=== PATIENT | male | born 1935 | race Caucasian/White ===

== ENCOUNTER 2016-10-23 13:17 | Inpatient (IN) ==
--- NOTE | 2016-10-23 13:32 | PROVIDER DOCUMENTATION ---
HPI-General Adult - General Chief Complaint: Fall Stated Complaint: FALL/HYPOTENSION Time Seen by Provider: 10/23/16 13:23 Source: patient Allergies/Adverse Reactions: Patient Allergies Allergy/AdvReac Type Severity Reaction Status Date / Time No Known Allergies Allergy Verified 10/23/16 14:04 Home Medications: Home Medication List Medication Instructions Recorded Confirmed Last Taken Type Diphenhydramine [Benadryl] 25 mg PO QAM 10/23/16 10/23/16 10/23/16 09:00 History 25mg - History of Present Illness -Gen Adult Nature of Presenting Problems: 81 y/o WM BIB EMS for hypotension with syncopal episode while outside in a softball game. Apparently he was in the outfield and all of a sudden fell forward. Patient denies loc, states he has no other medical history and only takes vitamins. Patient can answer my questions, however, he dozes off in between questions. States this has not happened before. En route, BP was 70s/40s , tachycardic at 107 bpm, and core temp of 97F. We will recheck this here. Patient denies any chest pain, sob, headache, blurry vision, abdominal pain, nausea, vomiting or diarrhea. No evidence of bowel or bladder incontinence. Patient is not diaphoretic at this time and mucosal membranes appear dry. He is in long pants, long jonhs and 3 pairs of socks, with paper towels stuffed in them; at this time it is about 75-80 degrees outside. Review of Systems - Adult - REVIEW OF SYSTEMS - ADULT ROS:: limited per condition Constitutional: reports: see HPIcristobal. denies: chills, fever, weight loss Eyes: reports: no symptoms reported. denies: decreased vision, blurred vision, double vision, eye pain Ears, Nose, Mouth & Throat: reports: no symptoms reported. denies: ear pain, nose pain, throat pain Cardiovascular: reports: see HPI, syncope. denies: chest pain, irregular heart rate, palpitations Respiratory: reports: no symptoms reported. denies: cough, shortness of breath , wheezing Gastrointestinal: reports: no symptoms reported. denies: abdominal pain, diarrhea, nausea, vomiting Genitourinary: reports: no symptoms reported. denies: dysuria, discharge, frequency, incontinence Musculoskeletal: reports: no symptoms reported. denies: bone pain, back pain, muscle aches Integumentary: reports: no symptoms reported. denies: rash Neurological: reports: no symptoms reported. denies: ataxia, dizziness/vertigo , headache/migraines Psychiatric: reports: no symptoms reported Endocrine: reports: no symptoms reported Hematologic/Lymphatic: reports: no symptoms reported Allergic/Immunologic: reports: no symptoms reported All Other Systems: Reviewed and Negative Past History - Adult - PAST MEDICAL HISTORY-ADULT Review of Records: reports: Old Records Reviewed, Nursing Assessment Review, Medications Reviewed, Social history reviewed & non-contributory. Major Childhood Illnesses: reports: denies history Cardiovascular: reports: denies history Respiratory: reports: denies history Gastrointestinal: reports: denies history Genitourinary: reports: denies history Musculoskeletal: reports: denies history Neurological: reports: denies history Endocrine/Immune: reports: denies history Other Conditions: reports: denies history - IMMUNIZATION STATUS Childhood Immunizations: See Nurse Assessment Flu Vaccine: See Nurse Assessment - FAMILY HISTORY Family History: reviewed, not pertinent Physical Exam-General - PHYSICAL EXAM-ADULT Initial Vital Signs Reviewed: Yes - CONSTITUTIONAL General Appearance: alert, thin - EYES Eyes: PERRL/EOMI, pink conjunctivae - HEAD, EARS, NOSE, MOUTH & THROAT HENMT: normocephalic/atraumatic, normal ENT inspection, other (dry mucous membranes) - NECK Neck: non-tender, full range of motion, supple, normal inspection - RESPIRATORY Respiratory: chest non-tender, lungs clear, normal breath sounds, no pleuratic chest pain, no respiratory distress, no accessory muscle use. negative: respiratory distress, decreased breath sounds, accessory muscle use, crackles, rales, rhonchi, wheezing - CARDIOVASCULAR Cardiovascular: normal peripheral pulses, regular rate, rhythm, no edema, no gallop, tachycardia. negative: bradycardia - GASTROINTESTINAL (ABDOMEN) Abdominal Exam: normal bowel sounds, non tender, soft, no organomegaly, no pulsatile mass. negative: abdominal bruit, abnormal bowel sounds, distended, guarding, rigid, rebound, tenderness - LYMPHATIC Lymphatic: no adenopathy - MUSCULOSKELETAL Extremity: normal range of motion, non-tender, normal inspection Peripheral Pulses: radial (R): 2+, radial (L): 2+, dorsalis-pedis (R): 2+, dorsalis-pedis (L): 2+ - SKIN Integumentary: normal color, normal turgor, warm/dry - NEUROLOGIC Neurologic: grossly normal, no motor/sensory deficits - PSYCHIATRIC Psych/Mental Status: normal thought content, normal thought process Progress - PLAN OF CARE/RESULTS Progress/Plan/Lab Results: Orders Category Date Time Status Cardiac Monitoring DIRECTED Care 10/23/16 13:24 Active Finger Stick Blood Sugar (ED) DIRECTED Care 10/23/16 13:24 Active Oxygen Therapy- ED Nursing DIRECTED Care 10/23/16 13:24 Active Saline Loc NOW Care 10/23/16 13:24 Active CHEST-PORTABLE [RAD] Stat Exams 10/23/16 13:24 Ordered HEAD W/O CONTRAST [CT] Stat Exams 10/23/16 13:24 Ordered ABG [RESP] Routine Lab 10/23/16 13:24 Ordered ALCOHOL BLOOD Stat Lab 10/23/16 13:24 Uncollected CBC WITH ELECTRONIC DIFF [HEME] Stat Lab 10/23/16 13:24 Uncollected CK PROFILE [SP CHEM] Stat Lab 10/23/16 13:24 Uncollected COMPREHENSIVE METABOLIC PANEL [CHEM] Stat Lab 10/23/16 13:24 Uncollected LACTATE, PLASMA [CHEM] Stat Lab 10/23/16 13:24 Uncollected PROTIME WITH INR [COAG] Stat Lab 10/23/16 13:24 Uncollected PTT [COAG] Stat Lab 10/23/16 13:24 Uncollected TROPONIN T Stat Lab 10/23/16 13:24 Uncollected URINALYSIS W/POSS RFLX CULT [URINALYSIS] Stat Lab 10/23/16 13:24 Uncollected URINE DRUG SCREEN Stat Lab 10/23/16 13:24 Uncollected Pulse Oximetry Stat Oth 10/23/16 13:24 Active EKG [EKG] Stat Ther 10/23/16 13:24 Ordered Patient had 2 IVs started MULTI SPINDLE OPERATOR, with 500 cc NS in. We initiated a second bolus and removed clothing. After initial interview, Dr. Pierce brought to bedside. Creatinine clearance 18.6 mL/min. Will adjust dosing of Zosyn Result Diagrams: 10/25/16 04:40 10/25/16 04:40 - REASSESSMENT Reassessment #1 Time Reassessed: 14:26 (patient more alert now. No longer falling asleep with interview. Can answer all my questions thuroughtly. States he has been having dysuria, and hematuria for the past 5 days. Also reports cough x 2 weeks.) Status: improving - XRAY 1 XRAY: Bilateral XRAY Study: Chest Impression: Abnormal (cardiomegaly and pulmonary vascular congestion) - CT/MRI 1 CT Study: Head Impression: Normal (negative per Dr. Patel) - CONSULTS/PCP/HOSPITALIST Notification #1 *Consult/PCP/Hospitalist*: HospitalistJeffry GOVERNMENT AUDITOR with Dr. Kern Time Discussed: 15:58 Reason/Comments: sepsis, UTI, AMS, hypotension, SAM Consult Disposition: Admit Departure - Departure Time of Disposition Decision: 15:59 DIAGNOSIS: SAM (acute kidney injury) Sepsis Qualifiers: Sepsis type: sepsis due to unspecified organism Qualified Code(s): A41.9 - Sepsis, unspecified organism UTI (urinary tract infection) Qualifiers: Urinary tract infection type: acute cystitis Hematuria presence: with hematuria Qualified Code(s): N30.01 - Acute cystitis with hematuria Disposition: ADMITTED INPATIENT 09 Certified Medical Emergency: Emergent Condition: Stable Attestation - Physician/ SUZY Attestation Patient care was provided by Advanced Practice Provider:: Yes Advanced Practice Provider:: Love Etienne Advanced Practice Provider documentation review:: The Mid-level provider documentation, treatment plan and medical decision making was reviewed by the physician who agrees with all treatment and medical decision making by the MLP. The physician spent face to face time with patient:: Yes Advanced Practice Provider documentation review:: The physician spent face to face time with this patient and agrees with all MLP documentation, treatment, and medical decision making by the MLP. See provider notes for further information.
[2016-10-23] MEDS ORDERED: NS 1,000 ML IV ONE ×3 (13:40→14:25)
[2016-10-23 13:42] LABS: ALLEN TEST YES; BE -8.4 mmoll (-3.0-3.0); BLOOD TYPE ARTERIAL; DRAW SITE R RADIAL; METHB 2.5 % (0.0-1.5); O2(CT) 14.6 mL/dL (15.0-23.0); PCO2(98.6) 28 mmHg (35-45); PO2(98.6) 74 mmHg (60-100); SAMPLE BLOOD; SAO2 97.9 % (95.0-100.0); THB 11.1 g/dL (11.5-17.4); pH(98.6) 7.36 (7.35-7.45)
[2016-10-23 13:57] LABS: INR 1.2; PROTIME 12.7 Seconds (9.2-11.7); PTT 37.4 Seconds (22.0-36.0)
[2016-10-23 14:05] LABS: BASO% 0.1 % (0.0-0.8); EOS# 0.01 X1000 (0.0-0.7); HEMATOCRIT 39.2 % (42.0-52.0); HEMOGLOBIN 13.3 g/dL (14.0-18.0); IMM GRAN# 1.11 X1000 (0.0-0.04); IMM GRAN% 1.8 % (0.0-0.5); LYMPH# 0.42 X1000 (1.2-3.4); LYMPH% 0.7 % (20.5-51.1); MANUAL DIFF NEEDED? YES; MCH 32.1 PG (27-31); MCHC 33.9 g/dL (33-37); MCV 94.7 FL (81-99); MONO# 0.98 X1000 (0.11-0.59); MONO% 1.6 % (1.7-9.3); MPV 13.8 FL (7.4-10.4); NEUT% 95.8 % (42.2-75.2); PLT 190 X1000 (130-400); RBC 4.14 XMIL (4.7-6.1)
[2016-10-23 14:10] LABS: BANDS 8 % (0-1); MONO 1 % (1-9)
[2016-10-23 14:12] LABS: ALBUMIN 2.5 g/dL (3.5-5.0); CALCIUM 9.1 mg/dL (8.8-10.2); POTASSIUM 3.3 mmol/L (3.5-5.1); TOTAL BILIRUBIN 0.89 mg/dL (0.20-1.00); TOTAL PROTEIN 5.9 g/dL (6.3-8.3)
[2016-10-23] MEDS ORDERED: ROCEPHIN 1 GM/NS 1 GM/50 ML IVPB IV ONE (14:14)
--- NOTE | 2016-10-23 14:15 | Diag Imaging Result Document ---
PROCEDURE NAME: HEAD W/O CONTRAST - 10/23/[address]: A CT dose reduction protocol was used. COMPARISON: None. FINDINGS: The ventricles and sulci are normal in size and contour. There is no mass, hemorrhage, or evidence of acute ischemia. The bony calvaria is intact. The visualized paranasal sinuses and mastoid air cells are clear. IMPRESSION: Negative head CT. MTDD
[2016-10-23] MEDS ORDERED: NS 4,000 ML ONE (14:16)
[2016-10-23] MEDS ORDERED: ZOSYN 2.25 GM/NS 2.25 GM/50 ML IVPB IV ONE (14:30)
--- NOTE | 2016-10-23 15:03 | Diag Imaging Result Document ---
PROCEDURE NAME: CHEST-PORTABLE - 10/23/2016 PORTABLE CHEST X-RAY: COMPARISON: None. FINDINGS: There is cardiomegaly and pulmonary vascular congestion. No obvious edema. No infiltrates. IMPRESSION: Cardiomegaly and pulmonary vascular congestion.
[2016-10-23 15:14] LABS: URINE SOURCE CLEAN CATCH
[2016-10-23 15:28] LABS: UR AMPHETAMINES QUAL NONE DETECTED (NONE DETECT); UR BARBITUATES QUAL NONE DETECTED (NONE DETECT); UR BENZODIAZEPIN QUAL NONE DETECTED (NONE DETECT); UR CANNABINOIDS QUAL NONE DETECTED (NONE DETECT); UR COCAINE QUAL NONE DETECTED (NONE DETECT); UR METHADONE QUAL NONE DETECTED (NONE DETECT); UR OPIATES QUAL NONE DETECTED (NONE DETECT); UR OXYCODONE QUAL NONE DETECTED (NONE DETECT); UR PCP QUAL NONE DETECTED (NONE DETECT)
[2016-10-23 15:31] LABS: BILIRUBIN URINE NEGATIVE (NEGATIVE); BLOOD URINE MODERATE (NEGATIVE); COLOR ORANGE; GLUCOSE URINE NEGATIVE (NEGATIVE); LEUKOCYTES URINE LARGE (NEGATIVE); NITRITE URINE NEGATIVE (NEGATIVE); PH URINE 5.5; PROTEIN URINE 200 mg/dL (NEGATIVE); SP GRAVITY URINE 1.017; TURBIDITY URINE TURBID (CLEAR); UROBILINOGEN URINE NORMAL (NORMAL)
[2016-10-23 15:34] LABS: UR EPITHELIAL CELLS >10 /HPF (<10); URINE BACTERIA 4+ /HPF; URINE CULTURE NEEDED? YES; URINE MICRO REVIEW NEEDED? YES; URINE RBC 20-40 /HPF (<10); URINE WBC TNTC /HPF (<10)
[2016-10-23 15:37] LABS: URINE CASTS NONE SEEN
[2016-10-23 16:53] LABS: RETIC% 0.6 % (0.8-2.1); RETIC-HE 35.2 PG (28.2-36.6)
[2016-10-23 17:08] LABS: HEMOGLOBIN A1C 4.2 % (4.8-6.0)
--- NOTE | 2016-10-23 17:18 | HISTORY AND PHYSICAL ---
PRIMARY CARE PHYSICIAN: None. CHIEF COMPLAINT: Weakness. HISTORY OF PRESENT ILLNESS: Mr. Ordaz is an 81-year-old male with no apparent medical history who comes to the ER today after a possible syncopal vs pre-syncopal event. 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 He is unclear if he passed out, but he does remember feeling dizzy just prior to the event. 911 was called and the patient came to the ER. He reports over the past 2-3 weeks he has had occasional fever and chills. He has had dysuria and lability in blood pressure. He denies any chest pain. He denies any shortness of breath but does report a cough with clear sputum production. He denies any abdominal pain, does report dysuria. Denies any hematuria. He reports occasional diarrhea but denies any hematochezia. He came to the ER today and was noted to be in severe sepsis with a white count of 60. He had a lactic acidosis with a lactate of 7 with liver dysfunction, renal dysfunction, and very large UTI. Sepsis protocol was initiated in the ER. He has received adequate fluid bolus. We are going to scan his chest, abdomen and pelvis, and then send him to the ICU. He was hypotensive on arrival but with fluid resuscitation his blood pressure has normalized. PAST MEDICAL HISTORY: None. PAST SURGICAL HISTORY: None. MEDICATIONS: None. SOCIAL HISTORY: No history of tobacco, alcohol or drug use. He has family at the bedside. 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 REVIEW OF SYSTEMS: Fourteen-point review of systems obtained and found to be negative with the exception of the HPI. FAMILY HISTORY: Noncontributory. PHYSICAL EXAMINATION: VITAL SIGNS: Blood pressure is 103/70, heart rate 98, respiratory rate 22, O2 saturation 99% on 2 L nasal cannula. Temperature is 97.5 degrees. GENERAL: This is an elderly male, lying in hospital bed, in no acute distress. NEUROLOGIC: The patient is awake, alert, oriented. He follows commands without focal deficits. HEENT: Head is atraumatic, normocephalic. His pupils are equal, round, reactive to light. Oral mucosa is dry. NECK: Trachea is midline. Neck is supple. No JVD. CHEST: Clear to auscultation bilaterally. CV: Regular rate and rhythm. S1-S2 is noted. There is a 1/6 systolic ejection murmur. GI: Soft, nondistended, nontender. Bowel sounds positive. EXTREMITIES: 1+ edema bilaterally with palpable pulses. DIAGNOSTIC DATA: Chest x-ray shows cardiomegaly with increased pulmonary vascular congestion. Head CT is negative for acute process. WBC 60.29, hemoglobin 13.3, hematocrit 39.2, platelet count 190,000, neutrophils 95.8, bands 8, segmented neutrophils 91, INR 1.2, PT 12.7. ABG on 2 L; pH 7.36, CO2 28, O2 74, bicarbonate 18, lactic acid is 7. Sodium is 137, potassium 3.3, chloride 94, CO2 14, anion gap 9, BUN 60, creatinine 3.7, glucose 62, calcium 9.1, bilirubin 0.89, AST 62, ALT 45, alkaline phosphatase 37.2. CK 50, troponin 0.123, proBNP 52.49. Protein 5.9, albumin 2.5, lactate 5.7. TSH 3.6, free T4 1.57. UA is positive for very large UTI. Tox screen is negative. Alcohol level is 0. ASSESSMENT/PLAN: 1. Severe sepsis: Evidenced by profoundly elevated white count, lactic acidosis , source of urinary tract infection, hypotension, and end-organ damage. 30 mL/kg boluses been given in the ER. His blood pressure has normalized and he does not need vasopressors at this time. However, we are going to send him to the ICU, but we will check an abdomen, pelvis and chest CT now to rule out any intra-abdominal or renal abscesses. Blood cultures have been obtained. We will continue to monitor his hemodynamics closely. 2. Urinary tract infection: Urine cultures are pending and we will continue broad-spectrum antibiotics. 3. Acute kidney injury: Likely prerenal, we are checking a CT of the abdomen and pelvis to rule out any obstruction, we will check comprehensive urine studies and a FENa. 4. Elevated liver function tests: Again, likely secondary to sepsis, but we are checking a CT of the abdomen and pelvis now. We will also check acetaminophen and salicylate levels. 5. Elevated troponin and proBNP: Patient denies any chest pain, we are going to order an EKG, chest x-ray shows cardiomegaly and pulmonary vascular congestion. While the patient certainly could have congestive heart failure, he could also has sepsis-induced cardiomyopathy. We are going to check an echocardiogram and continue to trend his enzymes. We will hold off any diuresis at this time given his severe sepsis. 6. We will add heparin for deep venous thrombosis prophylaxis given his renal failure. 7. Further recommendations to follow. Dictated by GATO Bob for Prashant Oneal MD cc: GATO Bob MD MTDD
[2016-10-23] MEDS: POTASSIUM CHLORIDE 20 MEQ/SWI 20 MEQ/100 ML IVPB IV SCH ×2 (17:27→20:10)
[2016-10-23 17:29] LABS: PROTEIN CREAT RATIO 0.5; UR CREAT RANDOM 163.8 mg/dL (14-26); UR PROT RANDOM 88.7 mg/dL
[2016-10-23] MEDS: NS 1,000 ML IV SCH (17:33)
[2016-10-23 17:55] LABS: ACETAMINOPHEN < 1.2 ug/mL (10-30); IRON SATURATION 12 %; TIBC 138 ug/dL; TOTAL IRON 16 ug/dL (53-167); UNBOUND IRON 122 ug/dL (112-346)
[2016-10-23 18:06] LABS: FREE T4 1.27 ng/dL (0.93-1.70)
[2016-10-23] MEDS: HEPARIN SUBQ SCH (21:35)
[2016-10-23] MEDS: ZOSYN 2.25 GM/NS 2.25 GM/50 ML IVPB IV SCH (21:44)
[2016-10-24] MEDS ORDERED: PNEUMOVAX 23 IM ONE (00:27)
[2016-10-24] MEDS: ZOSYN 2.25 GM/NS 2.25 GM/50 ML IVPB IV SCH ×4 (03:09→20:22)
[2016-10-24] MEDS ORDERED: VANCOMYCIN IV PER PHARMACY MISC SCH (04:45)
[2016-10-24] MEDS ORDERED: VANCOMYCIN 1,750 MG in NS 500 ML IV ONE (05:00)
[2016-10-24] MEDS: NS 1,000 ML IV SCH ×2 (05:05→20:22)
[2016-10-24 06:05] LABS: HEMATOCRIT 31.9 % (42.0-52.0); HEMOGLOBIN 10.8 g/dL (14.0-18.0); MCH 32.2 PG (27-31); MCHC 33.9 g/dL (33-37); MCV 95.2 FL (81-99); MPV 13.7 FL (7.4-10.4); RBC 3.35 XMIL (4.7-6.1)
[2016-10-24 06:31] LABS: ALBUMIN 2.1 g/dL (3.5-5.0); CALCIUM 7.6 mg/dL (8.8-10.2); POTASSIUM 3.6 mmol/L (3.5-5.1); TOTAL BILIRUBIN 0.53 mg/dL (0.20-1.00); TOTAL PROTEIN 4.6 g/dL (6.3-8.3)
[2016-10-24] MEDS: HEPARIN SUBQ SCH ×2 (08:29→20:22)
--- NOTE | 2016-10-24 14:51 | ECHO REPORT ---
ORDER DATE: 10/23/2016 INDICATION: Presyncope. FINDINGS: 1. Right atrium appears mildly enlarged at 4.7 cm. 2. Mild tricuspid regurgitation. RV systolic pressure of 30. 3. Normal RV size and systolic function. 4. No significant pulmonic insufficiency. 5. Normal left atrial size at 3.8 cm. 6. No mitral valve prolapse. Mild mitral regurgitation. 7. Normal LV size, end-diastolic dimension of 4.2. Borderline left ventricular hypertrophy with a posterior and interventricular septal thickness 1.0 and 1.2 cm respectively. Normal LV systolic function. Estimated EF is 60% with normal wall motion. 8. Aortic valve appears to open reasonably well. The valve is sclerotic but does not appear to be significantly stenotic. There is mild aortic insufficiency. 9. Aorta appears normal in visualized segments. 10. No pericardial effusion seen. cc: MD Adan Renee CRNP
--- NOTE | 2016-10-24 16:48 | PROGRESS NOTE ---
DATE: 10/24/2016 SUBJECTIVE: This patient states that he is feeling better. He is tolerating p.o. He is walking by himself and he is having bowel movement. No complaints. OBJECTIVE: Vital Signs: Temperature 98.3 degrees, pulse 74, respiratory rate 18, blood pressure 123/63, O2 saturation 96% on room air. HEENT: Head normocephalic. No trauma. Pupils equal, round, and reactive to light and accommodation. Neck: Supple. No jugular venous distention. No masses. Central trachea. Chest: Clear to auscultation. No wheezing. No rales. Cardiovascular: Regular rate and rhythm. Systolic murmur. Abdomen: Soft, nontender, nondistended. No hepatosplenomegaly. Extremities: No edema. No clubbing. No cyanosis. Neurological Examination: The patient is alert, oriented x3. No focal neurological deficits. LABORATORY: WBC 28.4, hemoglobin 10.8, hematocrit 31.9, platelet 138,000. Sodium 137, potassium 3.6, chloride 103, bicarbonate 19. BUN 61, creatinine 2.5, calcium 7.6. Albumin 2.1. ASSESSMENT AND PLAN: 1. Sepsis. This condition is getting better. He is still having leukocytosis. Blood pressure is controlled. Likely the source of infection is the urinary tract. We did a CT scan that showed the possibility of a prostate mass. Urology Department has been consulted. 2. Urinary tract infection. This patient has a urine culture that showed gram-negative rods. This patient is on broad-spectrum antibiotics. Continue with the same treatment. 3. Possible bacteremia. He positive blood culture that shows gram-negative rods and gram- positive rods. This patient is on broad-spectrum antibiotics. We will continue with the same management for now. 4. Elevated liver function tests likely secondary to sepsis. The numbers are getting better. Continue to monitor. 5. Elevated proBNP. The patient denies chest pain. Will monitor. 6. Possible mass at the level of the prostate. Urology Department has been consulted. Continue to monitor. 7. Deep venous thrombosis prophylaxis. This patient is on heparin subcutaneously. CRITICAL CARE TIME: Was 35 minutes. cc: Prashant Oneal MD
[2016-10-25] MEDS: ZOSYN 2.25 GM/NS 2.25 GM/50 ML IVPB IV SCH ×4 (04:10→22:43)
[2016-10-25 06:17] LABS: ALBUMIN 1.7 g/dL (3.5-5.0); CALCIUM 7.6 mg/dL (8.8-10.2); POTASSIUM 3.6 mmol/L (3.5-5.1); TOTAL BILIRUBIN 0.36 mg/dL (0.20-1.00); TOTAL PROTEIN 4.1 g/dL (6.3-8.3)
[2016-10-25 06:25] LABS: BASO% 0.1 % (0.0-0.8); EOS% 0.5 % (0.0-10.0); HEMATOCRIT 28.4 % (42.0-52.0); HEMOGLOBIN 9.4 g/dL (14.0-18.0); IMM GRAN# 0.11 X1000 (0.0-0.04); IMM GRAN% 0.6 % (0.0-0.5); LYMPH# 0.92 X1000 (1.2-3.4); LYMPH% 4.9 % (20.5-51.1); MANUAL DIFF NEEDED? YES; MCH 31.4 PG (27-31); MCHC 33.1 g/dL (33-37); MONO# 1.24 X1000 (0.11-0.59); MONO% 6.6 % (1.7-9.3); NEUT% 87.3 % (42.2-75.2); PLT 142 X1000 (130-400); RBC 2.99 XMIL (4.7-6.1)
--- NOTE | 2016-10-25 07:10 | EKG Report ---
Test Performed on : 10/23/2016 1:22:40 PM Test Reason : AMS Blood Pressure : / mmHG Vent. Rate : 099 BPM Atrial Rate : 099 BPM P-R Int : 124 ms QRS Dur : 096 ms QT Int : 398 ms P-R-T Axes : 052 -06 049 degrees QTc Int : 510 ms Sinus rhythm. with sinus arrhythmia. with occasional premature ventricular complexes. Possible Left atrial enlargement Prolonged QT Abnormal ECG When compared with ECG of 23-OCT-2016 13:22, (Unconfirmed) premature ventricular complexes. are now present ST no longer elevated in Lateral leads Unconfirmed Result
[2016-10-25 07:13] LABS: BANDS 6 % (0-1); LYMPHS 4 % (21-51)
--- NOTE | 2016-10-25 07:32 | Diag Imaging Result Document ---
PROCEDURE NAME: THORAX/ABDOMEN/PELVIS W/O CONT - 10/23/2016 CT OF THE CHEST: A CT dose reduction protocol was used. COMPARISON: None. FINDINGS: There is mild cardiomegaly. There are some increased interstitial markings suggesting mild pulmonary edema in the lung bases. There is some dependent atelectasis. No pneumothorax or pleural effusion. No adenopathy. Bony structures are intact. IMPRESSION: Cardiomegaly and probable mild interstitial pulmonary edema. CT ABDOMEN AND PELVIS: A CT dose reduction protocol was used. COMPARISON: None. FINDINGS: There is a large heterogeneous density prostate gland mass extending into the anterior wall of the rectum. This measures about 9 x 8 cm. There are some borderline enlarged retroperitoneal lymph nodes. Urinary bladder is collapsed by a Ellison catheter but the urinary bladder wall is thickened, probably due to chronic urinary bladder hypertension. There is severe diverticulosis throughout the entire colon. No evidence of bowel inflammation. Normal appendix. Solid organs are grossly normal. Advanced degenerative changes of the spine and pelvis. No suspicious bony lesions. IMPRESSION: 1. 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 2. Severe diverticulosis of the colon. [facility]
[2016-10-25] MEDS: HEPARIN SUBQ SCH ×2 (08:20→22:44)
--- NOTE | 2016-10-25 11:10 | EKG Report ---
Test Performed on : 10/25/2016 09:23:20 AM Test Reason : AMS Blood Pressure : / mmHG Vent. Rate : 087 BPM Atrial Rate : 087 BPM P-R Int : 146 ms QRS Dur : 094 ms QT Int : 382 ms P-R-T Axes : 057 001 042 degrees QTc Int : 459 ms Normal sinus rhythm. Possible Left atrial enlargement Anterior infarct , age undetermined Abnormal ECG When compared with ECG of 23-OCT-2016 13:22, (Unconfirmed) premature ventricular complexes. are no longer present Anterior infarct is now present QT has shortened Confirmed by Juwan VELARDE, David Hatch ([id number]) on 10/25/2016 8:06:05 PM
[2016-10-25 11:27] LABS: HEPATITIS PROFILE ACUTE SEE COMMENTS
--- NOTE | 2016-10-25 13:36 | PROGRESS NOTE ---
DATE: 10/25/2016 SUBJECTIVE: This patient states that he is feeling better. He is tolerating p.o. He is walking by himself. He is having bowel movements. No fever or chills. OBJECTIVE: Vital Signs: Temperature 97.5 degrees, pulse 77, respiratory rate 16, blood pressure 137/71, oxygen saturation 100% on room air. HEENT: Head normocephalic. No trauma. PERRLA. Neck: Supple. No JVD. No masses. Central trachea. Chest: Clear to auscultation. No wheezing. No rales. Cardiovascular: RRR. No murmurs. Abdomen: Soft, nontender, nondistended. No hepatosplenomegaly. Extremities: No edema. No clubbing. No cyanosis. Neurological: The patient is alert and oriented x3. No focal neurological deficits. LABORATORY: WBC 18.7, hemoglobin 9.4, hematocrit 28.4, platelets 142,000. Sodium 140, potassium 3.6, chloride 108, bicarbonate 20, BUN 72, creatinine 1.7, calcium 7.6. ASSESSMENT AND PLAN: 1. Sepsis. This condition is getting better. He is still having leukocytosis. Blood pressure is controlled. This patient has a positive urine culture that showed E. coli that is sensitive to Zosyn. Also this patient has bacteremia secondary to gram-negative rods. We will continue with the same management for now. 2. Urinary tract infection. Patient has had a urine culture, like I mentioned before, positive for E. coli. Continue with the same management. This patient is getting better. 3. Bacteremia. Blood culture showed gram-negative rods as well. The patient is on broad- spectrum antibiotics. Continue with the same management for now. 4. Elevated liver function tests, likely secondary to sepsis. The numbers are getting better. 5. Possible mass at the level of the prostate. Urology department evaluated this patient already, pending recommendations. Continue to monitor. 6. Deep vein thrombosis prophylaxis. Continue with heparin. 7. Overall this patient is doing much better. I will transfer this patient from the CIC unit to the medical floor. cc: Prashant Oneal MD
[2016-10-25] MEDS ORDERED: VANCOMYCIN 1,500 MG in NS 250 ML IV SCH (17:00)
[2016-10-25] MEDS: ZOFRAN IV PRN (22:46)
[2016-10-26] MEDS: NS 1,000 ML IV SCH ×2 (03:27)
[2016-10-26] MEDS: ZOSYN 2.25 GM/NS 2.25 GM/50 ML IVPB IV SCH ×2 (03:32→08:55)
[2016-10-26] MEDS: ZOFRAN IV PRN ×2 (05:23→13:01)
[2016-10-26 07:57] LABS: ALBUMIN 1.6 g/dL (3.5-5.0); CALCIUM 7.6 mg/dL (8.8-10.2); POTASSIUM 4.7 mmol/L (3.5-5.1); TOTAL BILIRUBIN 0.34 mg/dL (0.20-1.00)
--- NOTE | 2016-10-26 08:33 | CONSULTATION ---
DATE OF CONSULTATION: 10/24/2016 CONSULTING PHYSICIAN: Dr. Prashant Oneal. REASON FOR CONSULTATION: Prostate mass, urosepsis. 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 He reports having seen Dr. Wakefield, his family doctor, for quite some time and has not had a primary care doctor since Dr. Wakefield had retired. He has tried [facility] [place] in the past for an enlarged prostate and reports his PSA was in the 4 range a number of years ago. He did report baseline nocturia x3, hesitancy, postvoid dribbling, and sensation of incomplete emptying. He reported 1 episode of gross hematuria not too long prior to presentation. He denies history of urinary tract infections or family history of prostate cancer. He was admitted to the hospital and resuscitated for sepsis protocol. He currently reports he is feeling better. He has Ellison catheter in place. PAST MEDICAL HISTORY: BPH. PAST SURGICAL HISTORY: None. HOME MEDICATIONS: [id number] supplements. ALLERGIES: No known drug allergies. SOCIAL HISTORY: He denies tobacco, alcohol, or drug use. FAMILY HISTORY: Denies malignancies. REVIEW OF SYSTEMS: Reviewed and 12 systems negative with the exception to the HPI. PHYSICAL EXAMINATION: Temperature 97.7, Pulse 79, BP 132/76.General: No acute distress. Pleasant male. HEENT: Normocephalic, atraumatic. Cardiovascular: Regular rhythm. Pulmonary: Bilateral breath sounds. Abdomen: Scaphoid, nontender to palpation. : Uncircumcised phallus, meatus is normal, Ellison catheter in place. Testes are descended bilaterally without masses. Digital rectal examination: A very large gland, over 70 ccm, somewhat nodular and firm. I did not appreciate a mass extending into his rectum as a CT scan suggested. Lymphatics: No groin lymphadenopathy. Dermatologic: No obvious skin rashes. Neurologic: Alert and oriented x3. Psychiatric: Appropriate mood and affect. PERTINENT LABORATORY DATA: Creatinine 1.7. White cell count of 19,000. His urinalysis on 10/23/2016 was suspect for infection and current preliminary culture results showing gram-negative rods in his urine. PERTINENT IMAGES: CT chest, abdomen, and pelvis on 10/23/2016 with a report of a large prostate with mass effect reportedly involving the anterior wall of the rectum. ASSESSMENT: An 81-year-old male with a very large prostate, longstanding history of BPH, who came in with what appears to be urosepsis. I have discussed with the patient that he has an extremely large prostate gland. We discussed the utility of PSA testing and agreed to defer it given the fact that he has a UTI and has a Ellison catheter in which would likely elevate the PSA. I also explained to the patient that I could not appreciate direct involvement of the prostate into the wall of the rectum, and it is likely just to the mass effect of the prostate pushing onto the rectum. We discussed that he would benefit for now from Flomax 0.4 mg twice a day and side effects were explained. We discussed that he may benefit in the future from finasteride versus consideration of surgical interventions if this becomes a pattern of infections or he continues to have significant symptoms. PLAN: 1. Defer PSA for now. 2. Flomax 0.4 mg b.i.d. 3. Will discuss with the primary team possible GI evaluation as, again, on my exam he does not appear to have prostate involving the rectum wall, although on CT scan, it does look suspicious. Thank you for the consultation. cc: Harris Chamorro MD
[2016-10-26 08:37] LABS: HEMATOCRIT 19.7 % (42.0-52.0); HEMOGLOBIN 6.3 g/dL (14.0-18.0); MCH 31.7 PG (27-31); MPV 13.8 FL (7.4-10.4); RBC 1.99 XMIL (4.7-6.1)
[2016-10-26] MEDS: HEPARIN SUBQ SCH (09:00)
[2016-10-26] MEDS: FLOMAX PO SCH ×2 (13:01→22:32)
[2016-10-26] MEDS ORDERED: DULCOLAX PO ONE ×2 (13:30→21:00)
--- NOTE | 2016-10-26 13:59 | PROGRESS NOTE ---
DATE: 10/26/2016 SUBJECTIVE: This patient states that he is feeling better. He is tolerating p.o. He is walking by himself. He is having bowel movements. No fever. No chills. As per the nurse, this patient has been having some episodes of hypotension, asymptomatic. I put this patient again on telemetry and I will continue with the IV fluids. Occult blood in the stool is negative but urology recommended an evaluation by gastroenterology department to rule out any rectal issues/malignancy. OBJECTIVE: Vital Signs: Temperature 98.1 degrees, pulse 95, respiratory rate 24, blood pressure 111/68, oxygen saturation 100% on room air. HEENT: Head normocephalic. No trauma. PERRLA. Neck: Supple. No JVD. No masses. Central trachea. Chest: Clear to auscultation. No wheezing. No rales. Cardiovascular: RRR. No murmurs. Abdomen: Soft, nontender, nondistended. No hepatosplenomegaly. Extremities: No edema. No clubbing. No cyanosis. Neurological: The patient is alert and oriented x3. No focal neurological deficits. LABORATORY: WBC 20.1, hemoglobin 6.3, hematocrit 19.7, platelets 164,000. Sodium 143, potassium 4.7, chloride 112, bicarbonate 20, BUN 95, creatinine 1.4, glucose 123, calcium 7.6. ASSESSMENT AND PLAN: 1. Sepsis. This condition is getting better. He is still having leukocytosis. Blood pressure is controlled. We have a positive urine culture that showed E. coli that is sensitive to Zosyn. Also this patient has bacteremia secondary to gram-negative rods. We will continue with the same management for now. Infectious disease department has been consulted. 2. Anemia. I will transfuse this patient with 2 units of PRBCs and we will continue monitoring the hemoglobin and hematocrit. We have an occult blood of the stool that was negative. 3. Bacteremia. Blood culture showed gram-negative rods as well. We will continue with broad spectrum antibiotics. Infectious disease department has been consulted. 4. Elevated liver function tests. This is likely secondary to sepsis. Numbers are getting better. 5. Possible mass/hypertrophy at the level of the prostate. Urology department evaluated this patient. They have recommended to put this patient on tamsulosin twice a day. Will monitor. 6. Deep vein thrombosis prophylaxis. Continue with heparin. cc: Prashant Oneal MD
[2016-10-26] MEDS ORDERED: MIRALAX PO ONE (14:00)
[2016-10-26] MEDS: PROTONIX IV SCH (14:51)
[2016-10-26] MEDS: SODIUM CHLORIDE 0.9% INJ SCH (14:51)
--- NOTE | 2016-10-26 15:04 | CONSULTATION ---
DATE OF CONSULTATION: 10/26/2016 REFERRING PHYSICIAN: Dr. Harris Chamorro M.D. PRIMARY HOSPITALIST: Dr. Prashant Kern M.D. PRIMARY CARE PROVIDER: None. He was previously followed by Dr. Bustillo who is now retired. He has not seen a doctor since his snf. REASON FOR CONSULTATION: 1. Rectal mass. 2. Anemia. 3. Nausea. HISTORY OF PRESENT ILLNESS: The patient is an 81-year-old, white male who has long-standing history of BPH. 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 He was found to have urosepsis. He was subsequently treated for urosepsis but was noted to have a large prostate mass versus rectal mass on abdominal pelvic CT performed on 10/23/2016. The patient reports constipation for 2-3 weeks, 1 episode of rectal bleeding with blood mixed with stool and nausea. He was noted to have a hemoglobin of 6.3 with hematocrit of 19.7 today. We are asked to participate in his care. PAST MEDICAL HISTORY: 1. BPH. 2. Urosepsis. 3. Rectal mass versus prostate mass as noted above. PAST SURGICAL HISTORY: None. HOME MEDICATIONS: None. MEDICATION ALLERGIES: None. REVIEW OF SYSTEMS: Remarkable for nausea, epigastric tenderness, episode of hematochezia approximately 3 weeks ago, episode of hematuria in the last 3-4 weeks. He has occasional diarrhea in the past but typically has normal bowel movements. FAMILY HISTORY: Negative for or GI malignancies. PHYSICAL EXAMINATION: On exam, he is in no acute distress.Vital Signs: His blood pressure is 111/68, pulse of 95, respiration 24, temperature of 98.7 degrees. HEENT: Negative for jaundice. His oropharyngeal mucosal membranes are unremarkable. Pulmonary: Lungs are clear to auscultation with normal expiratory effort. Cardiovascular Exam: Reveals regular rate and rhythm with no gallops or rubs. Abdominal Exam: Reveals normoactive bowel sounds. The abdomen is soft with epigastric tenderness. There is no rebound or guarding. Extremities: Bilaterally are positive for 1+ edema Neurologic Exam: He is alert and oriented x3. OBJECTIVE DATA: Reveals a hemoglobin of 6.3 with hematocrit of 19.7 and a white count of 20.18. His platelet count is 164,000. Sodium is 143, potassium 4.7, chloride 112, CO2 20, BUN 95, creatinine 1.4 with a glucose of 68. His calcium is 7.6, magnesium 1.9, total bilirubin 0.34, AST 38, ALT 28, alkaline phosphatase 113. His total protein is 4.0 with an albumin of 1.6. IMPRESSION: 1. Rectal mass versus prostate mass. 2. Nausea. 3. Epigastric tenderness. 4. Profound anemia. RECOMMENDATION: 1. The patient has profound anemia associated with epigastric tenderness and nausea. He also has a rectal mass. Therefore, will plan to perform an EGD and colonoscopy in the morning. He reports that his last colonoscopy was more than 10 years ago. He denies a history of colon cancer, colon polyps as well as a family history of colon cancer or colon polyps. 2. Please transfuse the patient as he will need to have a hemoglobin greater than 8 prior to his endoscopy. 3. Begin Protonix 40 mg IV q.12 hours pending his endoscopy. 4. Orders have been written and consent has been discussed. 5. Additional recommendations to follow based on his endoscopic findings. 6. I also recommend a consult by Dr. Gaviota Bean M.D. as this is most likely malignant process based on the CT scan appearance. 7. Additional recommendations to follow based on his endoscopy. cc: Odilia Lucero M.D. Ren Rivera M.D. Heather Shah, M.D. [facility]ITALGay
--- NOTE | 2016-10-26 15:17 | CONSULTATION ---
DATE OF CONSULTATION: 10/26/2016 CONCLUSION: The patient has had an Escherichia coli urinary tract infection. He also has positive blood cultures for gram-negative rods which I think most likely will machine turner to be E coli as well. The patient has benign prostatic hypertrophy, which is predisposing him to develop a urinary tract infection and bacteremia. RECOMMENDATIONS: I have discontinued vancomycin, Zosyn and have put the patient on Ancef in a reduced dose of 1 g IV every 8 hours. Once the patient's white count starts decreasing, then I think we can get the patient home, and I would switch him to oral Levaquin. I plan to treat the patient for 6 weeks because he has an enlarged prostate which caused him to have this urinary tract infection with bacteremia. The Levaquin will be given p.o. The patient in the hospital is already seeing Dr. Chamorro, and he will be following the patient. DISCUSSION: The patient says for the past 3 weeks he has had difficulty passing his urine. He has also had fever and chills. He was admitted to the hospital. His urine is growing E coli and his blood cultures are growing gram-negative rods which are yet to be identified. The patient's CBC shows a white count that increased from yesterday to today to 20,180, hemoglobin 6.3 and platelet count 164,000. The creatinine was more elevated and now it is down to 1.4 with a GFR of 49. A CT scan of the chest, abdomen and pelvis shows cardiomegaly with pulmonary edema, severe diverticulosis and an enlarged prostate. PAST MEDICAL HISTORY/ REVIEW OF SYSTEMS: Eyes and Ears: The patient has difficulty hearing. His vision is okay. Neck: No stiffness. Respiratory: No cough or shortness of breath. Cardiovascular: No chest pains or palpitations. GI: No nausea, vomiting, or diarrhea. Genitourinary: See present illness. Bones, joints, muscles: Patient denies having muscle aches or joint pain. Endocrine: Patient does not have diabetes or thyroid disease. Neurologic: There is no motor or sensory deficit. Extremities: The patient has bilateral leg edema with brown pigmentation forming. The remainder of the patient's review of systems was completed and was negative. PREVIOUS HOSPITALIZATIONS AND OPERATIONS: He has had a tonsillectomy. MEDICAL DISEASES: Positive for hypertension, seasonal allergies, and benign prostatic hypertrophy. INFECTIOUS DISEASE HISTORY: Negative for pneumonia and UTI. FAMILY HISTORY: Positive for cancer and myocardial infarction. SOCIAL HISTORY: [place] He does not smoke cigarettes, drink alcoholic beverages or abuse drugs. He is a . He lives with his son and the son's fiance. He has a dog and a cat for pets. At home, he takes vitamins and Benadryl, and on a p.r.n. basis he takes Motrin. PHYSICAL EXAMINATION: Vital Signs: Show a temperature of 98.1 degrees, pulse 95, respirations 24 and blood pressure 111/68. General: This is an ill-appearing, elderly male. He is in no acute distress. Head, eyes, ears, nose, and throat: He has decreased hearing. He can see near objects. The oral cavity did not show any white patches. Neck: No meningismus. Thorax: No increased AP diameter. Lungs: Clear to auscultation. Cardiovascular: Regular heart rate. There was bilateral leg edema with brown discoloration distally. Neurologic: The patient is awake. He can move his extremities. There is no tremor. He is slow to respond to questions. Thank you for the consult. PLAN: I am going to go ahead now and repeat the patient's blood cultures tomorrow morning. cc: Carlos Evangelista MD
[2016-10-26] MEDS: KEFZOL 1 GM/D5W 1 GM/50 ML IVPB IV SCH ×2 (15:25→22:32)
[2016-10-26] MEDS: NS 500 ML ONE (19:05)
[2016-10-27] MEDS ORDERED: NS 500 ML ONE (00:29)
[2016-10-27] MEDS: NS 500 ML ONE (00:44)
[2016-10-27] MEDS: HEPARIN SUBQ SCH ×3 (03:13→21:14)
[2016-10-27] MEDS: PROTONIX IV SCH ×2 (04:10→14:51)
[2016-10-27] MEDS: SODIUM CHLORIDE 0.9% INJ SCH ×2 (04:10→14:51)
[2016-10-27] MEDS ORDERED: VANCOMYCIN 1,350 MG in NS 250 ML IV SCH (05:00)
[2016-10-27] MEDS: NS 1,000 ML IV SCH (05:28)
[2016-10-27] MEDS: KEFZOL 1 GM/D5W 1 GM/50 ML IVPB IV SCH ×2 (06:11→14:51)
[2016-10-27] MEDS ORDERED: KETAMINE (DOSE) ONE (06:40)
[2016-10-27] MEDS ORDERED: FENTANYL ONE (06:40)
[2016-10-27] MEDS ORDERED: DIPRIVAN 1% 500 MG/50 ML BOTTLE ONE (06:41)
[2016-10-27 07:03] LABS: BASO% 0.5 % (0.0-0.8); EOS# 0.32 X1000 (0.0-0.7); EOS% 2.9 % (0.0-10.0); HEMOGLOBIN 7.7 g/dL (14.0-18.0); IMM GRAN# 0.54 X1000 (0.0-0.04); IMM GRAN% 4.9 % (0.0-0.5); LYMPH# 1.68 X1000 (1.2-3.4); LYMPH% 15.1 % (20.5-51.1); MANUAL DIFF NEEDED? YES; MCH 30.8 PG (27-31); MCHC 33.5 g/dL (33-37); MONO# 0.64 X1000 (0.11-0.59); MONO% 5.8 % (1.7-9.3); MPV 13.1 FL (7.4-10.4); NEUT% 70.8 % (42.2-75.2); PLT 187 X1000 (130-400)
[2016-10-27 07:18] LABS: BANDS 6 % (0-1); LYMPHS 10 % (21-51); MONO 2 % (1-9)
[2016-10-27 07:21] LABS: AGAP 9; BUN 68 mg/dL (8-22); CALCIUM 7.3 mg/dL (8.8-10.2); CHLORIDE 114 mmol/L (98-107); COSMO 300; MAGNESIUM 1.9 mg/dL (1.5-2.7); POTASSIUM 4.1 mmol/L (3.5-5.1); SODIUM 141 mmol/L (136-145); TCO2 18 mmol/L (25-35)
[2016-10-27 07:24] LABS: LARGE PLATELETS 1+
[2016-10-27 09:03] LABS: SPECIMEN GASTRIC FLUID
[2016-10-27] MEDS ORDERED: XYLOCAINE-MPF 2% ONE (09:28)
[2016-10-27] MEDS ORDERED: DIPRIVAN 1% ONE (09:40)
[2016-10-27] MEDS: FLOMAX PO SCH ×2 (10:15→21:14)
[2016-10-27] MEDS: CARAFATE LIQUID PO SCH ×3 (12:33→21:14)
[2016-10-27] MEDS ORDERED: LEVAQUIN 750 MG/D5W 750 MG/150 ML IVPB IV SCH (13:00)
--- NOTE | 2016-10-27 15:11 | PROGRESS NOTE ---
DATE: 10/27/2016 SUBJECTIVE: This patient states that he is feeling better, he is tolerating p.o. He is walking by himself. No fever, no chills. He had an upper endoscopy and lower endoscopy done yesterday. The colonoscopy did not show any mass and the upper endoscopy showed multiple ulcers. Pending final results by GI. OBJECTIVE: Vital Signs: Temperature 97.8 degrees, pulse 73, respiratory rate 18, blood pressure 128/65, O2 saturation 97% on room air. HEENT: Head normocephalic. No trauma. PERRLA. Neck: Supple. No JVD. No masses. Central trachea. Chest: Clear to auscultation. No wheezing. No rales. Cardiovascular: RRR. No murmurs. Abdomen: Soft, nontender, nondistended. No hepatosplenomegaly. Extremities: Upper extremities edema 1 to 2+, no clubbing, no cyanosis. Neurological: The patient is alert and oriented x3. No focal neurological deficits. LABORATORY: WBC 11.1, hemoglobin 7.7, hematocrit 23, platelet 187,000. Sodium 141, potassium 4.1, chloride 114, bicarbonate 18, BUN 68, creatinine 1.1. Glucose 89, calcium 7.3, magnesium 1.9. ASSESSMENT AND PLAN: 1. Sepsis. This condition is getting better, blood pressure is controlled. We have a positive culture that showed E. coli, we also had a positive blood culture that is positive for gram- negative jose, Infectious Disease Department is following this patient. Continue following their recommendations. 2. Anemia. I already transfused 2 units of packed red blood cells yesterday. The hemoglobin improved but still 7.7, I will transfuse 1 more unit today. 3. Bacteremia. Blood culture showed gram-negative rods as well. We will continue with broad spectrum antibiotics. Infectious Disease Department is following this patient. 4. Hypertrophy/mass at the level of the prostate. Urology department evaluated this patient and they have recommended to put this patient on tamsulosin for now, once this patient is cleared from the infection they will probably do biopsy. 5. Diverticulitis, Dr. Lucero did a colonoscopy that showed diverticulitis, this patient has been placed on metronidazole and levofloxacin. 6. DVT prophylaxis. Continue with heparin. cc: Prashant Oneal MD
--- NOTE | 2016-10-27 16:29 | PROGRESS NOTE ---
DATE: 10/27/2016 PRESENT ILLNESS: The patient has an Escherichia coli urinary tract infection. He also has positive blood cultures for gram-negative rods which I think will return to service inspector to be identified as E. coli as well. There is concern that the patient may have a rectal mass also. MEDICATIONS: Dr. Lucero has started the patient on Levaquin, which should cover the E. coli in the patient's urine and gram-negative rods in the blood quite well. Because of this, I have discontinued cefazolin. PHYSICAL EXAMINATION: Vital Signs: Temperature is 97.4 degrees, pulse 73, respirations 16, blood pressure 124/56. General: This is a somewhat ill-appearing, elderly male. He is in no acute distress. Lungs: Clear to auscultation. Cardiovascular: Regular heart rate. Abdomen: Soft and nontender. Neurologic: Patient is alert. He can move his extremities. LAB AND X-RAY: There is no new x-ray. The CBC for today shows a white count of 11,110, hemoglobin 7.7 and platelet count 187,000. Urine is growing E. coli. Blood is growing gram- negative rods. Creatinine is 1.1. GFR is greater than 60. ASSESSMENT AND PLAN: The patient has an Escherichia coli urinary tract infection and probably associated bacteremia. The patient also has a positive rectal mass. My plan would be to have the patient stay on Levaquin until such time as it is discontinued, at which time I will probably restart him on cefazolin or Keflex. COMORBIDITY: The patient's comorbidities include the fact he is elderly and he also has benign prostatic hypertrophy, which predisposes him to develop urinary tract infections. cc: Carlos Evangelista MD
[2016-10-27] MEDS: FLAGYL 250 MG/NS 250 MG/50 ML IVPB IV SCH ×2 (16:32→21:13)
--- NOTE | 2016-10-27 19:19 | PROGRESS NOTE ---
DATE: 10/27/2016 SUBJECTIVE: Mr. Ordaz reports a decent day. He underwent EGD and colonoscopy today. He had received blood transfusion. He denies significant discomfort from catheter. OBJECTIVE: Vital Signs: Temperature 97.6 degrees, pulse 69, blood pressure 125 /80. General: No acute distress. Abdomen: Nontender, nondistended. : Ellison catheter is in place draining straw-colored urine. PERTINENT LABORATORY: His creatinine is down to 1.1. Hematocrit is 23. PERTINENT IMAGES: None. ASSESSMENT/PLAN: An 81-year-old male with urosepsis, likely secondary to a fairly sizable prostate which is nodular. He has been started on Flomax. I have discussed with the patient voiding trial. We had also discussed that we would recheck his digital rectal examination, and the prostate-specific antigen in approximately 2 weeks on an outpatient basis, and proceed from there. PLAN: 1. No genitourinary intervention needed at this point. 2. Continue Flomax 0.4 mg at bedtime when he goes home. 3. I will be happy to see him in my office in 2 weeks with a prostate-specific antigen and repeat digital rectal examination. cc: Harris Chamorro MD MTDD
[2016-10-27] MEDS ORDERED: BENADRYL ONE (21:11)
[2016-10-27] MEDS: BENADRYL IV PRN (21:14)
--- NOTE | 2016-10-27 22:14 | OPERATIVE NOTE ---
PROCEDURE DATE: 10/27/2016. PRIMARY HOSPITALIST DR: Prashant Oneal M.D. PRIMARY INFECTIOUS DISEASE: Carlos Evangelista M.D. INDICATION FOR PROCEDURE: 1. Nausea. 2. Anemia. PROCEDURE PERFORMED: Esophagogastroduodenoscopy with biopsy. CONSENT: Informed consent was discussed with the patient prior to the procedure. The risks, benefits, and alternatives were discussed. MEDICATION: The patient received monitored anesthesia care. PERFORMING PHYSICIAN: Odilia Lucero M.D. ASSISTANTS: 1. ST. [facility] 2. Betzy Hartmann RN. 3. Rain Valenzuela RN. 4. Tom Little CRNA. 5. Giovanni Prieto M.D. (Anesthesia). COMPLICATIONS: There were no complications. ESTIMATED BLOOD LOSS: Less than 2 mL. SPECIMENS REMOVED: 1. Gastric aspirate. 2. Duodenal biopsies. 3. Gastric biopsies. FINDINGS: After sedation was achieved, the upper endoscope was inserted to the 2nd portion of the duodenum. The hypopharynx appeared endoscopically normal. The tubular esophagus was normal to 45 cm. At the GE junction, there were a few scattered erosions and streaks of erythema consistent with grade A erosive esophagitis. The GE junction was measured at 45 cm. There was a hiatal hernia from 45-50 cm. In the gastric lumen, there was severe erosive gastritis with scattered erosions throughout the gastric body, antrum, and fundus. There was mild gastric retention of fluid in the fundus. Approximately 15 mL was aspirated for gastric pH. In the antrum, there were 4 large ulcers with superficial whitish bases. There was mucosal edema. The ulcers ranged in size from 10-15 mm. There was no stigmata of bleeding. Because of the gastric mucosal edema, there was partial outlet obstruction of the pylorus. However, we were able to intubate the pylorus. In the duodenal bulb, there was a large whitish-based ulcer that ranged in size from 12- 15 mm. There was no stigmata of bleeding. With some maneuvering, we were able to pass the scope into the 2nd portion of the duodenum. The 2nd portion and the 3rd portion of the duodenum appeared mildly erythematous, but it was otherwise unremarkable. After the exam was complete, biopsies were taken from the duodenal and gastric mucosa. It should be noted that the gastric pH results were obtained during the procedure and the patient has a gastric pH of 5. After the exam was complete, the lumen was decompressed and the scope was removed without incident. IMPRESSION: 1. Grade A erosive esophagitis. 2. Hiatal hernia. 3. Severe erosive gastritis. 4. Mild gastric stasis. 5. Four antral ulcers with whitish bases. 6. Gastric wall edema consistent causing a partial outlet obstruction. 7. Duodenal bulb ulcer. 8. Duodenitis. 9. Gastric pH of 5. RECOMMENDATION: 1. Await Pathology results. 2. Begin Protonix 40 mg IV q.12 hours. 3. Begin Carafate 1 g 4 times a day for 12 weeks, then stop. 4. We will plan to proceed with a colonoscopy as previously scheduled. cc: MD Prashant An MD Leroy F. Harris, MD MTDD
--- NOTE | 2016-10-27 22:38 | OPERATIVE NOTE ---
PROCEDURE DATE: 10/27/2016 REFERRING PHYSICIAN: Harris Chamorro M.D. PRIMARY HOSPITALIST: Prashant Oneal M.D. PRIMARY INFECTIOUS DISEASE: Carlos Evangelista M.D. INDICATIONS FOR PROCEDURE: 1. Rectal mass on computed tomography scan. It appears that there is a rectal versus prostate mass on computed tomography scan. 2. The patient reports a single episode of hematochezia approximately 1-2 weeks before admission. PROCEDURE PERFORMED: 1. Colonoscopy with polypectomy. 2. Colonoscopy with biopsy. CONSENT: Informed consent was obtained from the patient prior to the procedure. The risks, benefits, and alternatives were discussed. MEDICATIONS: The patient received monitored anesthesia care. PERFORMING PHYSICIAN: Odilia Lucero M.D. ASSISTANTS: 1. ST. Alex 2. Betzy Hartmann RN. 3. Rain Valenzuela RN. 4. GATO Brownlee. 5. Giovanni Prieto M.D. (Anesthesia). COMPLICATIONS: There were no complications. ESTIMATED BLOOD LOSS: Less than 2 mL. SPECIMENS: Removed: In jar #4, there was a polyp at 25 cm. In jar #5, there was rectal biopsy. CECAL INTUBATION TIME: 18 minutes due to the extensive diverticulosis. WITHDRAWAL TIME: 18 minutes due to fair to poor bowel prep. PREP QUALITY: Fair to poor. FINDINGS: After the EGD was performed, the pediatric colonoscope was inserted to the terminal ileum. The terminal ileum, ileocecal valve, and appendiceal orifice appeared endoscopically normal. Throughout the entire colon, there was complex diverticulosis. However , in the sigmoid and rectosigmoid colon, there was marked erythema and possible exudate consistent with diverticulitis. There was a 10-15 mm sessile polyp at 25 cm that was removed by snare cautery. There was a possible polyp at 20 cm that flattened with insufflation. Polypectomy not attempted. In the rectum at 15 cm, there was an ulcerated area. We touched the mucosa with the biopsy forceps and a large amount of white purulent exudate extruded from the ulcerated areas suggesting that the rectal lesion was an abscess as opposed to a mass. The surrounding tissue was biopsied for pathology. In the upper rectum, there were grade 1 internal hemorrhoids. On retroflexed view, there were large external hemorrhoids with at least 2 thrombosed vessels. It should be noted that there was melenic stool in the colonic lumen consistent with the findings on the EGD. Please see the EGD report for additional details. After the exam was complete, the lumen was decompressed and the scope was removed without incident. IMPRESSION: 1. Pandiverticulosis. 2. Sigmoid and rectosigmoid diverticulitis. 3. Sessile colon polyp at 25 cm, status post snare cautery. 4. Possible polyp at 20 cm, flattened with insufflation and polypectomy not attempted. 5. Rectal ulcer with purulent exudate versus rectal abscess. 6. Internal hemorrhoids, grade 1. 7. Large external hemorrhoids with thrombosis. 8. Melanotic stool in the colonic lumen. RECOMMENDATION: 1. Await biopsy results. 2. Begin Levaquin 750 mg daily for 10 days. 3. Recommend Flagyl 250 mg q.8 hours for 10 days. 4. After recovery, he will need a high-fiber diet. 5. The patient's hemoglobin remains low. He will need transfusions as indicated. 6. We will have the patient return to clinic in 4-6 weeks to assess interval progress. cc: MD Carlos An MD Omar J. Sosa-Chirinos, MD Sergey S. Ananyev, MD MTDD
[2016-10-28] MEDS: CARAFATE LIQUID PO SCH ×2 (01:24→09:15)
[2016-10-28] MEDS: FLAGYL 250 MG/NS 250 MG/50 ML IVPB IV SCH ×2 (01:24→09:15)
[2016-10-28] MEDS: PROTONIX IV SCH (01:24)
[2016-10-28 07:20] LABS: BASO% 0.4 % (0.0-0.8); EOS# 0.41 X1000 (0.0-0.7); EOS% 4.5 % (0.0-10.0); HEMATOCRIT 27.1 % (42.0-52.0); HEMOGLOBIN 9.1 g/dL (14.0-18.0); IMM GRAN# 0.47 X1000 (0.0-0.04); IMM GRAN% 5.1 % (0.0-0.5); LYMPH# 1.35 X1000 (1.2-3.4); LYMPH% 14.7 % (20.5-51.1); MANUAL DIFF NEEDED? YES; MCH 30.6 PG (27-31); MCHC 33.6 g/dL (33-37); MCV 91.2 FL (81-99); MONO% 6.5 % (1.7-9.3); MPV 12.5 FL (7.4-10.4); NEUT% 68.8 % (42.2-75.2); PLT 225 X1000 (130-400); RBC 2.97 XMIL (4.7-6.1)
[2016-10-28 07:42] LABS: EOS 4 % (1-10); LYMPHS 22 % (21-51); MONO 6 % (1-9)
[2016-10-28 07:52] LABS: AGAP 10; BUN 45 mg/dL (8-22); CALCIUM 7.8 mg/dL (8.8-10.2); CHLORIDE 113 mmol/L (98-107); COSMO 292; POTASSIUM 4.4 mmol/L (3.5-5.1); SODIUM 141 mmol/L (136-145); TCO2 18 mmol/L (25-35)
[2016-10-28] MEDS: HEPARIN SUBQ SCH ×2 (09:15→22:04)
[2016-10-28] MEDS: FLOMAX PO SCH ×2 (09:16→22:03)
[2016-10-28] MEDS: BENADRYL IV PRN (11:46)
[2016-10-28] MEDS: CARAFATE PO SCH ×3 (14:00→22:02)
--- NOTE | 2016-10-28 14:11 | PROGRESS NOTE ---
DATE: 10/28/2016 SUBJECTIVE: This patient states that he is feeling much better. He is tolerating p.o. Dr. Lucero during the colonoscopy found out that this patient had some kind of purulent material coming out from the perianal area. I have consulted Surgery Department to evaluate this patient for possible perianal abscess. OBJECTIVE: Vital Signs: Temperature 97.3 degrees, pulse 77, respiratory rate 20, blood pressure 134/60, O2 saturation 98 on room air. HEENT: Head normocephalic. No trauma. PERRLA. Neck: Supple. No JVD. No masses. Central trachea. Chest: Clear to auscultation. No wheezing. No rales. Cardiovascular: RRR. No murmurs. Abdomen: Soft, nontender, nondistended. No hepatosplenomegaly. Extremities: Upper edema 1 to 2+. No clubbing. No cyanosis. Neurological: The patient is alert and oriented x3. No focal neurological deficits. LABORATORY: WBC 9.2, hemoglobin 9.1, hematocrit 27.1, platelets 225,000. Sodium 141, potassium 4.4, chloride 113. Bicarbonate 18. BUN 45, creatinine 1, calcium 7.8. Glucose 91. ASSESSMENT AND PLAN: 1. Sepsis resolved. The blood pressure is controlled. The leukocytes are normal. He had E. coli in the urine and also in the blood. Dr. Lucero did a colonoscopy and she saw pus coming out from the perianal area. Surgery Department has been consulted. 2. Bacteremia. Blood culture showed gram-negative rods as well. We will continue with broad spectrum antibiotics. Infectious Disease Department is following this patient. 3. Urinary tract infection secondary to E. coli, continue with the same management. 4. Possible perianal abscess. Continue with antibiotics. Surgery Department has been consulted. 5. Anemia. This patient has been transfused today. The hemoglobin is much better, it is 9.1. Continue to monitor. 6. Hypertrophy/mass at the level of the prostate. Urology Department evaluated this patient and they have recommended to put this patient on tamsulosin for now. They will follow up this patient in a couple of weeks. 7. Diverticulitis, this patient is on antibiotics. 8. DVT prophylaxis. Continue with heparin. DISPOSITION: Overall this patient is doing much better. There is a possibility of perianal abscess, and Surgery Department will evaluate this patient. If they are not going to do any kind of surgery this patient can be discharged today. Everything has been set up already. cc: Prashant Oneal MD
[2016-10-28] MEDS: FLAGYL PO SCH ×2 (15:06→22:02)
--- NOTE | 2016-10-28 15:12 | CONSULTATION ---
DATE OF CONSULTATION: 10/28/2016 REQUESTING PHYSICIAN: Dr. Kern. REASON FOR CONSULTATION: Concerning possible prostatic versus perirectal abscess. HISTORY OF PRESENT ILLNESS: An 81-year-old male with no real major medical history will come into the emergency department on 10/23/2016 with a syncopal versus presyncopal episode. At that time, he was found to be potentially undergoing urosepsis. He was admitted and started on antibiotics. He had a CT scan after noticing a large prostate on exam that showed prostatic mass versus rectal mass. This was a non-contrasted CT scan. He underwent a colonoscopy by Dr. Lucero and apparently there was an ulcerated area noted that she biopsied that without a significant amount of purulence. It came out in the area where the prostatic mass was. I was asked to evaluate the patient for this potential abscess. The patient is not having any current abdominal pain. He is having bowel movements, otherwise doing well. Again, no major issues. PAST MEDICAL HISTORY: 1. BPH. 2. Urosepsis. 3. Possible prostatic versus rectal abscess. PAST SURGICAL HISTORY: None. HOME MEDICATIONS: None. ALLERGIES: None. FAMILY HISTORY: Negative for cancers. REVIEW OF SYSTEMS: A full 10 point review of system obtained, negative other than as specified in HPI. PHYSICAL EXAMINATION: Vital Signs: Patient is currently afebrile. His vital signs are stable. General exam: No acute distress. Alert, interactive, male looks stated age. HEENT: Normocephalic, atraumatic. Pupils equal, round, reactive to light. Mucous membranes moist. Oropharynx benign. Neck: Supple. Trachea midline. Cardiovascular: Regular rate and rhythm. Lungs: Grossly clear. Abdomen: Soft, nontender, nondistended. Extremities: Moves all extremities well. Neurologic: Grossly intact. Skin: No signs of jaundice. Vascular: All extremities perfused. LABORATORY AND X-RAYS: Reviewed. Of note, patient's white blood cell count is 9, hematocrit is 27, platelet count 225. The remainder of labs reviewed. CT scan independently reviewed and reviewed with the radiologist. There appears to be what might be prostatic mass versus prostatic abscess abutting the rectum which is in the area where it was described by Dr. Lucero that it had purulence. ASSESSMENT AND PLAN: An 81-year-old male with possible prostatic abscess versus perirectal abscess. 1. Abscess at this time has been drained. The patient does not have any significant tenderness. He is on currently on antibiotics with Levaquin and Flagyl. At this time, given the potential this is a prostatic abscess, we will ask urology to re-evaluate him. I do not think this is a large abscess to require any more drainage, but it may need further workup for prostatitis and may need his antibiotics changed given the different organisms associated with prostatic abscesses. Infectious disease is on board. I will make further recommendations after I discuss the case with Dr. Chamorro with urology. cc: Kenny Smith MD
--- NOTE | 2016-10-28 16:29 | PROGRESS NOTE ---
DATE: 10/28/2016 SUBJECTIVE: The patient was found to have a perirectal abscess versus a prostatic abscess on colonoscopy. Recommend continuing antibiotics. I agree with evaluation by Surgery. He has scheduled followup with Dr. Chamorro. We await biopsy results. He should have an ultrasound or repeat CT scan after his course of antibiotics to ensure resolution of the infection. I recommend continued conservative management at this time. cc: Odilia Lucero M.D. Ren Delacruz M.D. Heather Shah, M.D. Omar J. Sosa-Chirinos, M.D. NEHEMIAH
--- NOTE | 2016-10-28 18:24 | PROGRESS NOTE ---
DATE: 10/28/2016 PRESENT ILLNESS: The patient has an Escherichia coli urinary tract infection and bacteremia. Dr. Lucero did colonoscopy on the patient today and she took a biopsy of the mass and it turned out to be it was an abscess. MEDICATIONS: The patient is on a combination of Levaquin and Flagyl. PHYSICAL EXAMINATION: Vital Signs: Temperature is 97.3 degrees, pulse 72, respirations 20, blood pressure 132/65. General: This is a somewhat ill-appearing, elderly male. He is in no acute distress. Lungs: Clear to auscultation. Cardiovascular: Regular heart rate. Abdomen: Soft and nontender. LABORATORY AND X-RAY: CBC shows a white count of 9200, hemoglobin 9.1, and platelet count 225,000. The patient's creatinine today is 1. The creatinine was 1. The GFR was greater than 60. ASSESSMENT AND PLAN: 1. The patient has an abscess that may have originated in the prostate and then was drained during the colonoscopy by biopsying the area. The plan would be to continue Levaquin and Flagyl. 2. Comorbidities: Include the fact that he is elderly and he has benign prostatic hypertrophy. cc: Carlos Evangelista MD
[2016-10-28] MEDS: PROTONIX PO SCH (22:03)
[2016-10-28] MEDS: SODIUM CHLORIDE 0.9% INJ SCH (22:03)
[2016-10-29] MEDS: FLAGYL PO SCH ×3 (05:30→20:59)
--- NOTE | 2016-10-29 06:29 | PROGRESS NOTE ---
DATE: 10/29/2016 SUBJECTIVE: The patient is doing okay. No major issues. OBJECTIVE: Vital Signs: Patient is currently afebrile. His vital signs have been stable. General Examination: No acute distress. Resting comfortably in bed. HEENT: Normocephalic, atraumatic. Pupils equal, round, react to light. Mucous membranes moist. Oropharynx benign. Neck: Supple. Trachea midline. Cardiovascular: Regular rate and rhythm. Lungs: Grossly clear. Abdomen: Soft, nontender, nondistended at this time. Extremities: Moves all extremities. Neurologic: Grossly intact. Skin: No signs of jaundice. Vascular: All extremities perfused. LABORATORY: Currently pending. ASSESSMENT AND PLAN: An 81-year-old male with possible prostatic abscess versus perirectal abscess versus mass. Prostatic abscess versus perirectal abscess versus mass. At this time, the patient does not show any clinical signs of worsening abdominal pain. He has not had any more drainage at this point. He is currently on antibiotics to cover potential for an abscess. At this time, the pathology is pending on his rectal biopsies. Would like to follow up with those pathologies. There is concern that this potentially could be related to a prostatic mass. Since that is the case, Urology is following. I did discuss over the phone with Dr. Harris Chamorro. At this time, will hold off on any more aggressive intervention until pathology is finalized and make further recommendations at that point. My partner will follow over the weekend. cc: Kenny Smith MD
[2016-10-29 06:55] LABS: BASO% 0.5 % (0.0-0.8); EOS# 0.45 X1000 (0.0-0.7); EOS% 4.7 % (0.0-10.0); HEMATOCRIT 27.2 % (42.0-52.0); IMM GRAN# 0.62 X1000 (0.0-0.04); IMM GRAN% 6.4 % (0.0-0.5); LYMPH# 1.46 X1000 (1.2-3.4); LYMPH% 15.1 % (20.5-51.1); MANUAL DIFF NEEDED? YES; MCH 30.6 PG (27-31); MCHC 33.1 g/dL (33-37); MCV 92.5 FL (81-99); MONO# 0.84 X1000 (0.11-0.59); MONO% 8.7 % (1.7-9.3); MPV 12.1 FL (7.4-10.4); NEUT% 64.6 % (42.2-75.2); PLT 289 X1000 (130-400); RBC 2.94 XMIL (4.7-6.1)
[2016-10-29 07:15] LABS: AGAP 9; BUN 31 mg/dL (8-22); CALCIUM 7.5 mg/dL (8.8-10.2); CHLORIDE 111 mmol/L (98-107); COSMO 284; POTASSIUM 4.2 mmol/L (3.5-5.1); SODIUM 139 mmol/L (136-145); TCO2 19 mmol/L (25-35)
[2016-10-29 07:31] LABS: BANDS 2 % (0-1); LYMPHS 16 % (21-51); MONO 12 % (1-9)
[2016-10-29] MEDS: HEPARIN SUBQ SCH ×2 (09:54→21:01)
[2016-10-29] MEDS: CARAFATE PO SCH ×4 (09:54→20:59)
[2016-10-29] MEDS: FLOMAX PO SCH ×2 (09:54→20:59)
[2016-10-29] MEDS: PROTONIX PO SCH ×2 (09:54→21:00)
--- NOTE | 2016-10-29 13:37 | PROGRESS NOTE ---
DATE: 10/29/2016 PRESENT ILLNESS: The patient has an E. coli urinary tract infection and bacteremia. The origin of the bacteremia appears to be some type of abscess either in the prostate or in the perirectal area. MEDICATIONS: Currently, the patient is on Levaquin and Flagyl. PHYSICAL EXAMINATION: Vital Signs: Temperature is 98 degrees, pulse 77, respirations 18, blood pressure 131/65. General: This is a fairly healthy-appearing, elderly male. He is in no acute distress. Lungs: Clear to auscultation. Cardiovascular: Regular heart rate. Abdomen: Soft and nontender. LAB AND X-RAY: The patient's creatinine today is 0.9. GFR is greater than 60. The patient's CBC today shows a white count of 9650, hemoglobin 9 and platelet count 280,000. ASSESSMENT AND PLAN: Dr. Smith and Dr. Chamorro are going to decide if any surgical therapy is indicated. The patient has been written out a prescription by Dr. Kern for Levaquin 500 mg daily for 42 tablets. I have drawn repeat blood cultures today on the patient and I have asked the microbiology laboratory to send me the final result. I plan to see the patient back in my office in 3 weeks. A biopsy of the colon was obtained by Dr. Lucero. That biopsy report is pending. COMORBIDITIES: Include he is elderly and he has benign prostatic hypertrophy. cc: Carlos Evangelista MD
--- NOTE | 2016-10-29 14:59 | PROGRESS NOTE ---
DATE: 10/29/2016 SUBJECTIVE: Patient notes that he is feeling a little bit better. He is starting to eat better. PHYSICAL EXAMINATION: Vital Signs: Temperature 98 degrees, pulse 88, respiratory rate 18, BP 131/65 to 149/68. General: Patient is awake, alert. He is currently in no real respiratory distress. He is pleasant to talk with. HEENT: Normocephalic, atraumatic. Neck: Supple. CV: Regular rate. Chest: Relatively clear. Abdomen: Soft. Extremities: Moves his upper extremities without any issues. Neuro: He is awake, alert. DIAGNOSTIC DATA: WBC 9, hemoglobin and hematocrit 9 and 27. Carbon dioxide 19 ,calcium 7.8. ASSESSMENT: 1. Hypocalcemia. 2. Severe protein calorie malnutrition. Most recent albumin 1.6. 3. Leukocytosis. Resolved. 4. Anemia. Improved after transfusion. 5. Sepsis. Likely secondary to Escherichia coli. 6. Escherichia coli urinary tract infection. 7. Escherichia coli bacteremia. 8. Anemia. Stable after transfusion. 9. Benign prostatic hypertrophy. 10. Diverticulitis. On antibiotics. PLAN: We will continue his antibiotics currently. Dr. Smith with Surgery and Dr. Evangelista with Infectious Disease have been seeing the patient in consultations. Currently we will continue him on his current home medications, continue to advance his diet, and hopefully home soon. cc: Alex Mak MD
--- NOTE | 2016-10-29 16:02 | CONSULTATION ---
DATE OF CONSULTATION: 10/27/2016 CHIEF COMPLAINT: Rectal mass. HISTORY OF PRESENT ILLNESS: Mr. Ordaz is a very pleasant 81-year-old, male with no significant medical history who presented to [facility] Emergency Department after a syncopal episode. 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 He does remember feeling dizzy prior to the episode. [id number] was called and the patient was brought to [facility] via EMS. The patient also reports that over the last 2-3 weeks he has had an occasional fever with chills. Additionally he has had dysuria and hypotension. He also has had some occasional diarrhea without any hematochezia. Upon presentation to [facility] the patient was found to be in severe sepsis with a white blood cell count of 60,000. He was found to have a large urinary tract infection. Additionally abdominal CT was obtained of the chest, abdomen and pelvis which revealed a large prostate mass involving the anterior wall of the rectum as well as severe diverticulosis. We are consulted for questionable rectal versus prostate mass. PAST MEDICAL HISTORY: None. PAST SURGICAL HISTORY: None. SOCIAL HISTORY: The patient has no history of tobacco, alcohol or illicit drug use. FAMILY HISTORY: Negative for any hematologic or oncologic problem. MEDICATIONS ON ADMISSION: None. ALLERGIES: None. REVIEW OF SYSTEMS: A 14 point review of systems was obtained and is negative except as mentioned in HPI. PHYSICAL EXAMINATION: Mr. Ordaz is a very pleasant 81-year-old, male, lying supine in bed in no immediate distress.HEENT: Normocephalic, atraumatic. Mucous membranes are pink and moist. Sclerae anicteric. Extraocular movements intact. Neck: Supple. Lungs: Clear to auscultation bilaterally. Chest expansion is equal bilaterally. CV: S1-S2 is heard without murmur, rub or gallop. Abdomen: Soft, nondistended, nontender. Bowel sounds positive all quadrants. No rebound or guarding noted. Extremities: Without clubbing, cyanosis, or edema. Dermatologic: No rashes, bruises or lesions. Neurologic: The patient is awake, alert, and oriented x3. He has no focal deficit. LABORATORY DATA: Hemoglobin 7.7, hematocrit 23.0, white blood cell count is 11.11, platelet count 187,000. ANC is 7.87, ALC 1.68. Sodium 141, potassium 4.1, chloride 114, CO2 is 18, BUN 6.8, creatinine 1.1. Glucose is 89, calcium 7.3, magnesium 1.9. IMAGING STUDIES: CT of the chest, abdomen and pelvis reveals a large prostate mass involving the anterior wall of the rectum as well as severe diverticulosis. CT of the head is negative for any acute abnormality. ASSESSMENT AND PLAN: 1. Large prostate mass with questionable rectal involvement. We will check a PSA as well as a bone scan. Urology has been consulted and is following. Dr. Lucero has been consulted as well with plans for colonoscopy. 2. Sepsis with cultures pending. The patient is currently on Levaquin and cefazolin. 3. Urinary tract infection. Again the patient is currently on Levaquin and cefazolin. 4. Acute kidney insufficiency. Creatinine has improved and is stable at 1.1. 5. Elevated LFTs of questionable etiology. CT reveals no liver involvement or abnormality. 6. Elevated troponin and BNP. The patient is status post EKG, ultrasound. Cardiology is currently following. 7. We will follow along with you and make further recommendations pending outcomes. Dictated by GATO Alvarez for Devaughn Bella MD cc: GATO Alvarez MD
[2016-10-29] MEDS ORDERED: LEVAQUIN PO SCH (17:00)
[2016-10-30] MEDS: FLAGYL PO SCH (05:45)
[2016-10-30 08:23] VITALS: BP 122/78
[2016-10-30] MEDS: HEPARIN SUBQ SCH (10:18)
[2016-10-30] MEDS: FLOMAX PO SCH (10:19)
[2016-10-30] MEDS: CARAFATE PO SCH (10:19)
[2016-10-30] MEDS: PROTONIX PO SCH (10:19)
--- NOTE | 2016-10-30 18:06 | DISCHARGE SUMMARY ---
ADMISSION DATE: 10/23/2016 DISCHARGE DATE: 10/30/2016 DISCHARGE DIAGNOSES: 1. Escherichia coli bacteremia resolved. 2. Escherichia coli sepsis resolved. 3. Escherichia coli urinary tract infection improving. 4. Perianal abscess improving. 5. Anemia. Stable after transfusion. 6. Leukocytosis. WBC count 60,000 on admit. Has been stable for the past 2 days at 9. 7. Syncope resolved. 8. Acute renal failure. Serum creatinine 3.7 on admit and currently 0.9, resolved. 9. Hypocalcemia. Will continue to replace. 10. Acute hepatitis continues to improve. Likely secondary to infectious etiology. 11. Moderate to severe protein calorie malnutrition. CONSULTATIONS: 1. Urology. 2. Dr. Smith with General Surgery. 3. Dr. Lucero with Gastroenterology. PROCEDURES: Colonoscopy demonstrates perirectal abscess versus prostatic abscess. BRIEF HOSPITAL COURSE: Patient is an 81-year-old male who was admitted as on the [facility]. He apparently had a syncopal episode that brought him to the hospital. Upon workup he was noted to have a white count of 60,000 and to be in acute renal failure. He was admitted to the hospital, given antibiotics, IV fluids. He was initially found to have a perianal versus prostatic abscess. He had a colonoscopy which did not demonstrate anything different. He was placed on antibiotics which he tolerated very well. He continued to improve. His white count resolved. He did have an episode of anemia and was transfused. Since then he has had no further issues with anemia. His creatinine continued to improve. Currently is back to his baseline at 0.9. On discharge, patient is awake, alert. He is ambulating in the joshi. He is having no difficulty and states he is feeling better and would like to go home. DISPOSITION: Patient has been on Levaquin and Flagyl p.o. for the past 2 days. We will continue this at home. We will continue Levaquin for 14 more days given his septicemia and E. coli bacteremia. He will follow up outpatient with Urology regarding his abscess. He will also follow up with his primary care in 1-2 weeks. Of note, he did have an abnormal mole on his left upper arm which certainly appears that this could be a basal cell carcinoma. This will be addressed outpatient. DISCHARGE MEDICATIONS: Levaquin 500 once a day for 14 days. Flagyl 500, 3 times a day for 3 more days. Flomax twice a day. Protonix once a day. 35 minutes was spent in discharge planning and instructions. cc: Alex Mak MD
== END 2016-10-30 12:16 | disposition home or self-care (01) ==
LOC: ED 13:17 → EDIPHOLD 17:54 → SUATTDRO 17:54 → 3S 22:56 → 3N 10-25 12:29
PROVIDERS: ATTEND Family Medicine